=== PATIENT | female | born 1950 | race Caucasian/White ===

== ENCOUNTER 2017-02-10 17:19 | Emergency (ER) | payer OTHER, MEDICARE ==
[~2017-02-10] VITALS: Ht 175.3 cm; Wt 94.1 kg
[2017-02-10 17:45] VITALS: BP 135/85; PULSE 71; RESP 18; O2SAT 100
--- NOTE | 2017-02-10 18:24 | DRSVH ---
PROCEDURE: X-RAY RIGHT HAND, MINIMUM THREE VIEWS ([id number]) INDICATIONS: 66-year-old female with right hand grossly dorsal to the 2nd through 4th metacarpals. TECHNIQUE: 3 views of the hand(s) acquired. COMPARISON: [facility], CR, XR HAND 3VW RT, 11/23/2015, 14:35. FINDINGS: Bones: There is age indeterminate tiny avulsion fracture involving the ulnar styloid tip. Carpal winnie chavez are normally aligned. There is significant distal interphalangeal joint degeneration as before. No suspicious bony lesions. Soft tissues: No suspicious soft tissue calcifications. IMPRESSION: 1. No acute bony injuries of the metacarpals. Age indeterminate tiny avulsion fracture of the ulnar styloid tip. 2. Significant distal interphalangeal joint degeneration as before. Dictated by: Prabhjot Alcantar M.D. on 02/10/2017 at 18:22 Approved by: Prabhjot Alcantar M.D. on 02/10/2017 at 18:23
--- NOTE | 2017-02-10 19:29 | ED.REPORT ---
HPI-Extremity Problem Upper Date of Service Feb 10, 2017 ED Provider: Dr. Humphries Pt is a 66 y/o female w/ a hx of arthritis of the hands presenting to the ED c/ o right hand injury which occurred today. The patient was on the floor cleaning a toilet and put her right hand down onto the ground in order to support herself to stand up and heard a crack and felt a snap about her right wrist area. The hand is swollen, ecchymotic, and tender. She denies numbness or weakness of the fingers. Pain is exacerbated by ROM. Nursing Notes Stated Complaint: RIGHT HAND INJURY Chief Complaint: Extremity Trauma Nursing Notes Reviewed: Yes Allergies: Coded Allergies: No Known Allergies (Verified , 06/26/06) General Time Seen by MD: 19:29 Chief Complaint Hand injury right Hx Obtained From: Patient Arrived By: Walk-in Onset Occurred: 1 - 4 hours ago Symptom Duration: Since onset Caused by: Accidental, Body motion Location: : Hand right: Wrist right Quality: Painful Severity: Current: Moderate Severity: Maximum: Moderate Exacerbated by: Range of motion Similar Sx Previous: No Past Medical History Past Medical History None reported Past Surgical History None reported Smoking History Unknown if Ever Smoker Social History Other Social History: Good social support Ambulatory Status Independent Review of Systems Constitutional: Denies: Chills, Fever Musculoskeletal: Reports: Extremity pain, Extremity swelling Skin: Reports Bruising, Reports Swelling, Denies Rash Neurologic: Denies: Focal weakness, Numbness, Weakness Complete sys rev & neg: except as marked. Physical Exam Initial Vital Signs Vital Signs (First) Date Time Temp Pulse Resp B/P Pulse Ox O2 Delivery O2 Flow Rate FiO2 02/10/17 17:45 36.7 71 18 135/85 100 Room Air Initial VS: Reviewed, Vital signs normal Head / Eyes: Atraumatic, Normocephalic, PERRL ENT: Mucous membranes moist, Conjunctiva normal, No scleral icterus Neck: Supple, Full range of motion Respiratory: No respiratory distress Cardiovascular: Intact distal pulses Abdomen / GI: No distention Lower Extremities: Vascular intact, Neuro intact, No swelling, No tenderness Skin: Warm, Dry, No cyanosis Neurologic: Alert, Oriented, Nonfocal Psychiatric: Mood/affect normal, Behavior normal, Normal thought content General/Constitutional: Awake, Alert, No acute distress, Well appearing, Well developed, Well hydrated, Well nourished, Cooperative, Not toxic appearing Wrist / Hand: No deformity, Neurologic intact, Vascular intact, No compartment syndrome, No circumferential injury, No clubbing/cyanosis Ecchymosis and swelling over the dorsal aspect of the right hand extending to the wrist with associated tenderness Snuffbox tenderness present Interpretation & Diagnostics X-Ray Interpretation Xray Interpretation: IMPRESSION: 1. No acute bony injuries of the metacarpals. Age indeterminate tiny avulsion fracture of the ulnar styloid tip. 2. Significant distal interphalangeal joint degeneration as before. Dictated by: Prabhjot Alcantar M.D. on 02/10/2017 at 18:22 Approved by: Prabhjot Alcantar M.D. on 02/10/2017 at 18:23 Study Performed: 3 view X-Ray Ordered: Hand right Interpretation / Wet Read by: Interpret - Radiologist Xray Interpretation: IMPRESSION: Age indeterminate tiny avulsion fracture of the ulnar styloid tip. Dictated by: Prabhjot Alcantar M.D. on 02/10/2017 at 19:55 Approved by: Prabhjot Alcantar M.D. on 02/10/2017 at 19:56 Study Performed: 3 view X-Ray Ordered: Wrist right Interpretation / Wet Read by: Interpret - Radiologist Re-Eval/Medical Decision Med Decision/Clinical Course Snuffbox tenderness present. Mild tenderness over the ulnar styloid as well. X -ray showed ulnar styloid tip fracture of indeterminate age. She was placed in a well-padded well fitting splint with a thumb spica component. We will refer to orthopedics for definitive management consider MRI versus CT. Short course of Taylor prescribed for pain. Routine opiate warnings given. Re-Evaluation/Progress : Time of Eval: 20:13 Re-Evaluation/Progress Note: Pt rechecked. Informed pt of plan for treatment. Pt understands and agrees with plan for treatment. F/U instructions and RTER warnings given. All questions addressed. Counseled Regarding: Diagnosis, Need for follow-up, When/why to return to ED Discharge & Departure Impression: Primary Impression: Wrist fracture Encounter type: initial encounter Fracture type: closed Laterality: right Qualified Code: S62.101A - Fracture of unspecified carpal bone, right wrist, initial encounter for closed fracture Disposition: Home Discharge Condition All VS Reviewed: Yes Condition: Stable Patient Instructions: Splint Care (ED), Wrist Fracture in Adults (GEN) Additional Instructions: The x-rays shows that you have an avulsion fracture of the ulnar styloid. It is hard to date the fracture however you injured herself today so this may be an acute fracture. Otherwise you have arthritic changes. Either way I think you need to have the wrist immobilized until seen by orthopedics. You may need an MRI to rule out injury to the other bones of your wrist. Wear the splint until you are seen in follow-up. Call Sunday to set up a follow-up for next week. Take 1-2 Taylor every 6 hours as needed for severe pain. Take Motrin 600 mg every 8 hours as needed for moderate pain. Do not drive or drink alcohol or consume acetaminophen while taking the Taylor. Do not hesitate to return for any problems or any worsening symptoms. If the splint seems to tight then loosen the Romeo wrap or come back for recheck. Referrals: Micha Mackenzie MD (PCP) Chucho Avalos MD Attestation Portions of this note were transcribed by Linus Joseph. I, Dr. Humphries personally performed the history, physical exam and medical decision-making; I reviewed and confirmed the accuracy of the information in the transcribed note. Signed by John Whitfield, 02/10/17 - 1944 copies to: Micha Mackenzie MD, Todd P DO Feb 10, 2017 19:29 LINUS JOSEPH Feb 10, 2017 19:39
[2017-02-10] MEDS ORDERED: HYDROcodone-APAP 5-325 mg Tablet PO ONE (19:40)
--- NOTE | 2017-02-10 19:57 | DRSVH ---
PROCEDURE: X-RAY RIGHT WRIST COMPLETE, MINIMUM THREE VIEWS ([id number]) INDICATIONS: 66-year-old female with right wrist and hand trauma, snuff box injury. TECHNIQUE: For views of the wrist were acquired. COMPARISON: [facility], CR, XR HAND 3VW RT, 02/10/2017, 18:02. FINDINGS: Bones: There is age indeterminate tiny avulsion fracture from the ulnar styloid tip. Carpal bones a ppear normally aligned. There is 1st carpometacarpal joint degeneration. No suspicious bony lesions . Scaphoid view: Scaphoid appears intact. Soft tissues: No suspicious soft tissue calcifications. IMPRESSION: Age indeterminate tiny avulsion fracture of the ulnar styloid tip. Dictated by: Prabhjot Alcantar M.D. on 02/10/2017 at 19:55 Approved by: Prabhjot Alcantar M.D. on 02/10/2017 at 19:56
[2017-02-10 20:24] VITALS: BP 130/90; PULSE 69; RESP 18; O2SAT 98
[2017-02-26] MEDS ORDERED: OXYC5TAB72 PO (17:11)
[2017-02-26] MEDS ORDERED: CHOL100045 PO (17:11)
[2017-02-26] MEDS ORDERED: CYCL5TAB PO (17:11)
[2017-02-26] MEDS ORDERED: HYDR12.5 PO (17:11)
[2017-02-26] MEDS ORDERED: CYA1000I IM (17:11)
[2017-02-26] MEDS ORDERED: METO-272 PO (17:11)
[2017-02-26] MEDS ORDERED: ASPI325T32 PO (17:11)
[2017-02-26] MEDS ORDERED: IBUP200C11 PO (17:11)
[2017-02-26] MEDS ORDERED: LEDI1TAB PO (17:11)
[2017-02-26] MEDS ORDERED: THYR120T2 PO (17:11)
[2017-02-26] MEDS ORDERED: ENAL10TA PO (17:11)
[2017-02-26] MEDS ORDERED: PANT40TA2 PO (17:11)
== END 2017-02-10 20:25 | disposition home or self-care (01) ==
LOC: SED 17:19
DX: S62.101A Fracture of unspecified carpal bone, right wrist, initial encounter for closed fracture (principal); X50.9XXA Other and unspecified overexertion or strenuous movements or postures, initial encounter; Y93.E5 Activity, floor mopping and cleaning; Y92.9 Unspecified place or not applicable; Y99.8 Other external cause status

== ENCOUNTER 2017-02-27 12:01 | Day surgery (SDC) | payer OTHER, MEDICARE ==
[2017-02-27] VITALS (8 sets, daily range): BP systolic 141–163; BP diastolic 85–96; PULSE 65–77; RESP 13–17; O2SAT 96–100
[~2017-02-27] VITALS: Ht 175.3 cm; Wt 96.1 kg
--- NOTE | 2017-02-27 07:43 | PCM.HPANE ---
Patient Data Surgeon Admitting Provider: Attending Provider:Danny Pillai DO Primary Care Physician:Micha Mackeznie MD Other Provider:Shanita Linares Anesthesia Reason for Visit Right Distal Radius/Ulnar Styloid Fracture Ht/WT & BMI Height (Feet): 5 Height (Inches): 9 Weight (Kilograms): 95.345 Body Mass Index 31.00 Allergies Coded Allergies: codeine (Verified Adverse Reaction, Severe, n&v, 02/27/17) Past Anesthesia History Anesthesia History: Denies:: Anesthesia Reactions, Malignant Hyperthermia Diabetes History Hx Diabetes?: No MRSA MRSA: No Medications Blood Thinner: Aspirin Hypertension Medication: Yes (HCTZ,ENALAPRIL) Home Meds Incl Beta [place]de: Yes (METOPROLOL) Reported Medications Cholecalciferol (Vitamin D3) (Vitamin D)1,000 Unit Capsule2,000 Unit PO DAILY # 1 BOTTLE Ref 0 02/26/[address] (Protonix)40 Mg Ukaxvk06 Mg PO DAILY Ref 0 02/26/17 oxyCODONE 5 Mg Tablet5 Mg PO Q6-8H PRN For Pain Ref 0 02/26/17 Metoprolol Succinate ER 50 Mg Tab.er.24h50 Mg PO DAILY Ref 0 02/26/17 Enalapril Maleate 10 Mg Ldwiab83 Mg PO BID Ref 0 02/26/17 Aspirin 325 Mg Ggxidy252 Mg PO DAILY #1 BOTTLE 02/26/17 Thyroid,Pork ([place] Thyroid)120 Mg Ctxfeu978 Mg PO DAILY 02/26/17 Hydrochlorothiazide 12.5 Mg Sfywcnu77.5 Mg PO DAILY 30 Days Ref 0 02/26/17 Ibuprofen (Advil)200 Mg [id number] Mg PO Q6H PRN PRN 02/26/17 Discontinued Reported Medications Ledipasvir/Sofosbuvir (Harvoni 90-400 mg Tablet)1 Each Tablet1 Each PO DAILY 02/26/17 Cyclobenzaprine 5 Mg Tablet5-10 Mg PO TID PRN Spasm 02/26/17 Cyanocobalamin (Cyanocobalamin Injection)1,000 Mcg/1 Ml Vial1,000 Mcg IM Monthly 02/26/17 History History of ENT Problems?: Yes HEENT History: Positive for:: Sinus Problem (ALLERGIC RHINITIS) TMJ (HX OF) Other HEENT Pertinent History: S/P TONSILLECTOMY Hx of Heart Problems?: Yes Cardiovascular History: Positive for:: Atrial Fibrillation (HX OF IN 2014) Chest Pain Coronary Artery Disease (POSS ME 2014) Hypertension Irregular Heartbeat (HX PVC'S, A FIB 2014) Denies:: Heart Murmur (ECHO 10/2015 EF 60-65%) Valvular Heart Disease Hx of Respiratory Problem?: Yes Respiratory History: Positive for:: COPD (MILD DISEASE PULM. NOTE/PFT -2008) Pneumonia (HX OF) Use of C-PAP Machine (WILLIAM+ ??CPAP) Hx Neurologic Problems?: Yes Other Neurological Pertinent: C/OF INSOMNIA Hx of GI Problems?: Yes Gastrointestinal History: Positive for:: Gall Bladder Disease (S/P JORGE ALBERTO) Gastroesphageal Reflux (HX PUD) Hepatitis (CHRONIC HEP C (TREATED W/ ALBERT)) Hiatal Hernia Other GI Pertinent History: S/P GASTRIC SLEEVE Hx of Problems?: No Female Hx: Denies:: Currently Skin History: Denies:: History Skin Disorders? Pressure Ulcers Hx Musculoskeletal Problems?: Yes Musculoskeletal History: Positive for:: Musculoskeletal Trauma (S/P LT KNEE MENISECTOMY FX RT DISTAL RADIUS=CURRENT PROBLEM) Osteoarthritis Denies:: Back Injury (C/.OF BACK/NECK PAIN) Hx of Psycho/Social Problems?: No Hx Surgeries?: Yes (LT KNEE MENISECTOMY,JORGE ALBERTO,GASTRIC SLEEVE,TONSILLECTOMY) Hx Any Other Health Problems?: Yes Other History: Positive for:: Hospitalization (CARDIAC) Thyroid Disease Denies:: Cancer Endocrine Disease Hx Diabetes: No Hx Alcohol Use: NoHx Substance Use: No Smoking Status: Unknown if Ever Smoker Have You Smoked inLast 12 mo: No Stop/Bang S-Snoring: Do You Snore Loudly: No T-Tired: feel tired, fatigued: Yes O-Obsered: Observed not breath: No P-Blood Pressure: treated: Yes B- Body Mass Index > 35 kg/m2: No A- Age over 50: Yes N- Neck Large Circumference: No G- Gender Male: No WILLIAM Total Score: 3 Risk Assessment Category Category 1A: Patient has history of documented sleep apnea, and HAS NOT received any narcotic, sedative or anesthesia administration during this stay. Category 1B: Patient has history of documented sleep apnea, and HAS received any narcotic , sedative or anesthesia administration during this stay Category 2: Patient has SUSPECTED Obstructive Sleep Apnea, and HAS received any narcotic , sedative or anesthesia administration during this stay. Category 3: Patient has SUSPECTED Obstructive Sleep Apnea and HAS NOT received narcotic, sedative or anesthesia administration during this stay. Category 4: Outpatient in Procedural Areas with known sleep apnea or who screen positive for High Risk via the STOP/BANG questionnaire. Exam Exam General Appearance: Alert, Oriented X3, Cooperative, No Acute Distress HEENT/AIRWAY: MP 2 Lungs: Normal Air Movement Heart: Regular Rate/Rhythm Plan Impression Patient chart reviewed, patient interviewed and anesthestic plan with risks, benefits, and alternatives discussed, and informed consent obtained. ASA Physical Status: ASA3 Severe Disease Anesthetic Plan: GA Bene/Risks/Altern/Consents: Yes HP Complete Prior to Induction: Yes Ruchi Bueno DO Feb 27, 2017 07:43
[~2017-02-27 12:01] MED LIST: ASPI325T32 PO; CHOL100045 PO; CYA1000I IM; CYCL5TAB PO; ENAL10TA PO; HYDR12.5 PO; IBUP200C11 PO; LEDI1TAB PO; METO-272 PO; OXYC5TAB72 PO; PANT40TA2 PO; THYR120T2 PO
[2017-02-27] MEDS ORDERED: Ondansetron 2 mg/mL 2 mL Inj ONE (12:02)
[2017-02-27] MEDS ORDERED: fentaNYL-PF 50 mCg/mL 2 mL Inj ONE (12:02)
[2017-02-27] MEDS ORDERED: Propofol 10,000 mCg/mL 20 mL Inj ONE (12:02)
[2017-02-27] MEDS ORDERED: Dexamethasone 4 mg/mL Inj ONE (12:02)
[2017-02-27] MEDS ORDERED: CeFAZolin Inj 2 gm / 50mL D5W IV ONE (12:14)
[2017-02-27] MEDS ORDERED: CeFAZolin Inj 2 GM in IV Premix 1 EACH IV SCH (12:16)
[2017-02-27] MEDS ORDERED: Lactated Ringer's 1,000 ML IV SCH ×2 (12:20→13:40)
[2017-02-27] MEDS ORDERED: Lactated Ringer's 1,000 ML IV ONE (12:30)
[2017-02-27] MEDS ORDERED: EPHEDrine Sulfate 50 mg/mL Inj IVPUSH PRN (13:40)
[2017-02-27] MEDS ORDERED: Ondansetron 2 mg/mL 2 mL Inj IVPUSH PRN (13:40)
[2017-02-27] MEDS ORDERED: Lactated Ringer's 500 ML IV PRN (13:40)
[2017-02-27] MEDS ORDERED: Phenylephrine 10,000 mCg/mL Inj IVPUSH PRN (13:40)
[2017-02-27] MEDS ORDERED: HYDROmorphone 1 mg/mL Inj IVPUSH PRN (13:40)
[2017-02-27] MEDS ORDERED: MetoCLOpramide 5 mg/mL 2 mL Inj IVPUSH PRN (13:40)
[2017-02-27] MEDS ORDERED: oxyCODONE-Acetamin 5-325 mg Tablet PO PRN (13:50)
[2017-02-27] MEDS ORDERED: Lidocaine 1%-Epi 1:100,000 20 mL Inj INJ ONE (14:18)
--- NOTE | 2017-02-27 15:07 | PCM.ANEP1 ---
Post Anesthesia Phase 1 PACU Phase 1 Assessment Vital Signs Vital Signs Date Time Temp Pulse Resp B/P Pulse Ox O2 Delivery O2 Flow Rate FiO2 02/27/17 12:30 36.9 65 16 144/92 96 Room Air Anesthetic Administered: GA Level of Alertness: Awake, talking DEL CID's with Equal Strength: Yes Pain: No Nausea or Vomiting: No Oxygen Delivery: Room Air Lungs: Normal Air Movement Complications: No Ruchi Bueno DO Feb 27, 2017 15:07
[2017-02-27] MEDS: fentaNYL-PF 50 mCg/mL 2 mL Inj IVPUSH PRN ×2 (15:10→15:25)
--- NOTE | 2017-02-28 19:12 | OP ---
[address] [address] OPERATIVE REPORT PATIENT: REFUGIO WHITING : 1950 MR#: [id number] ADMIT: 02/27/2017 JOB ID: [id number] DATE OF SURGERY: 02/27/2017 PREOPERATIVE DIAGNOSIS(ES): Right extra-articular distal radius fracture with concomitant ulnar styloid fracture. POSTOPERATIVE DIAGNOSIS(ES): Right extra-articular distal radius fracture with concomitant ulnar styloid fracture. PROCEDURE: Open reduction, internal fixation of right extra-articular distal radius fracture with closed treatment of an ulnar styloid fracture. SURGEON: Danny Pillai DO ANESTHESIA: General. HISTORY: The patient is a pleasant 66-year-old female that fell onto outstretched right hand. She sustained an extra-articular minimally displaced distal radius and ulnar styloid fracture. She was treated in cast immobilization but subsequently lost the reduction about two and a half weeks out from her injury. The fracture was dorsally angulated. We discussed proceeding with operative fixation. She understood the risks include, but are not limited to, neurovascular injury, tendon injury, infection, failure of fixation, stiffness, persistent pain all of which may require further intervention. The patient had all questions answered. Consent was signed and placed in the chart. PROCEDURE IN DETAIL: The patient was brought to the operative suite and placed supine on the operating table. Surgical time-out was performed. Everyone in the room was in agreement. After appropriate anesthesia was obtained, right upper arm tourniquet was applied and the right upper extremity prepped and draped in sterile fashion. Right upper extremity was then exsanguinated and tourniquet inflated to 250 mmHg. A standard flexor carpi radialis approach was utilized. The FCR tendon was identified and retracted ulnarly. The sub sheath next was incised followed by exposure of the underlying flexor pollicis longus. The flexor pollicis longus was then also retracted ulnarly revealing the underlying pronator quadratus. The pronator quadratus was then released from its most distal and radial margin exposing the fracture site. The fracture was mainly reduced and the reduction was verified under fluoroscopy. This was followed by application of a narrow Arthrex distal volar radius plate. The plate was held provisionally with K-wires. The prone position of the plate was verified under fluoroscopy. Next, a nonlocking screw was placed within the oblong hole within the shaft to pull the plate to the volar cortex of the distal radius. This was followed by completion of fixation with locking screws distally, making sure to keep the locking screws free of the proximal cortex and the articular surface. Completion of fixation proximally within the shaft was performed utilizing nonlocking screws. Final radiographic projections were utilized and verified anatomic reduction, appropriate placement of the hardware and appropriate length of all screws. Copious irrigation was performed followed by closure of the subcutaneous tissues with 4-0 Vicryl and running 4-0 nylon for the skin. The patient was then placed into a well-padded, well-molded volar resting splint. ESTIMATED BLOOD LOSS: Less than 1 cc. COMPLICATIONS: None. DISPOSITION: The patient tolerated the procedure well. Anesthesia was reversed and the patient transferred to PACU for recovery. IMPLANTS: An Arthrex narrow volar distal radius plate. POSTOPERATIVE PLAN: The patient will follow up with occupational therapy within the week, will be transitioned into a removable wrist brace and start initiating range of motion of the wrist. She will see me back in two weeks for suture removal.
== END 2017-02-27 23:59 | disposition home or self-care (01) ==
LOC: SAS 12:01
PROVIDERS: ATTEND Orthopaedic Surgery
DX: S52.551A Other extraarticular fracture of lower end of right radius, initial encounter for closed fracture (principal); S52.611A Displaced fracture of right ulna styloid process, initial encounter for closed fracture; I25.10 Atherosclerotic heart disease of native coronary artery without angina pectoris; I10 Essential (primary) hypertension; E03.9 Hypothyroidism, unspecified; B18.2 Chronic viral hepatitis C; K21.9 Gastro-esophageal reflux disease without esophagitis; M48.02 Spinal stenosis, cervical region; I48.91 Unspecified atrial fibrillation; J30.9 Allergic rhinitis, unspecified; R73.9 Hyperglycemia, unspecified; M19.90 Unspecified osteoarthritis, unspecified site; G47.33 Obstructive sleep apnea (adult) (pediatric); Z98.84 Bariatric surgery status; Z79.82 Long term (current) use of aspirin; Z87.891 Personal history of nicotine dependence; W18.30XA Fall on same level, unspecified, initial encounter; Y93.01 Activity, walking, marching and hiking; Y92.9 Unspecified place or not applicable; Y99.8 Other external cause status
CPT/HCPCS: 25609; C1713; J0690; J1100; J1885; J2175; J2250; J2405; J3010; J7120